=== PATIENT | female | born 1970 | race Caucasian/White ===

== ENCOUNTER 2019-12-13 23:52 | Emergency (ER) | payer MEDICAID, SELFPAY ==
[2019-12-13 23:57] VITALS: BP 235/144; PULSE 94; RESP 19; TEMP 36.9; O2SAT 95; BMI 51.5
--- NOTE | 2019-12-14 00:08 | ED_ITS ---
HPI - General Adult General: Chief complaint: General Medical Stated complaint: high bp Time Seen by Provider: 12/14/19 00:01 Source: patient Mode of arrival: ambulatory Limitations: no limitations History of Present Illness: HPI narrative: 49-year-old female who states she has a long history of high blood pressure does not take any meds and does not follow with anyone. She states started having numbness in her arm roughly 1 hour ago. She states that since then her symptoms resolved. Her blood pressure is 235/144. Patient states everything is resolved and she would like to go home right now. She denies any pain and denies any other issues. Associated symptoms: Deny chest pain, dyspnea, headache(s), nausea, rash or vomiting Review of Systems Const: Denies: fever(s), chills, body aches or change in appetite Eyes: Denies: blurry vision or eye discomfort ENMT: Denies: throat pain or dental pain Card: Denies: chest pain Resp: Denies: dyspnea GI: Denies: abdominal pain, nausea, vomiting or diarrhea : Denies: dysuria Musc: Denies: neck pain or back pain Skin/Breast: Denies: rash Neuro: Denies: headache(s) Psych: Denies: depression Jaime/Lymph: Denies: easy bruising All/Imm: Denies: urticaria Physical Exam Const: COMMON NORMALS: no acute distress, patient oriented x3 and healthy appearing HENMT: COMMON NORMALS: normocephalic and atraumatic HEAD & SCALP: normoc ephalic and atraumatic Eye: COMMON NORMALS: Equal, round and reactive pupils present and EOMs intact bilaterally PUPIL: Yes Equal, round and reactive pupils present Neck/C-Spine: COMMON NORMALS: full ROM and supple Chest: COMMONS NORMALS: normal inspection of the chest and normal palpation of entire chest wall Resp: COMMON NORMALS: normal respiratory effort, No retractions, No use of accessory muscles and clear to auscultation bilaterally AUSCULTATION: clear to auscultation bilaterally Cardio: COMMON NORMALS: regular rate, regular rhythm and No murmurs present (Cardio) RATE: regular rate RHYTHM: regular rhythm GI: COMMON NORMALS: Normal to inspection, nondistended, normoactive bowel sounds present, Soft to palpation, non-tender and no masses PALPATION: Yes Soft to palpation Extremity: COMMON NORMALS: normal to inspection and full ROM Neuro: COMMON NORMALS: patient oriented x3, moves all extremities and no focal motor deficits Psych: COMMON NORMALS: mental status grossly normal, Normal thought process present and cooperative THOUGHT PROCESS: Normal thought process present Skin: COMMON NORMALS: no rashes or lesions noted and no wounds GENERAL SKIN EXAM: no rashes or lesions noted Course Vital Signs: Vital signs: Vital Signs Temperature 98.5 F 12/13/19 23:57 Pulse Rate 94 12/13/19 23:57 Respiratory Rate 19 H 12/13/19 23:57 Blood Pressure 235/144 12/13/19 23:57 Pulse Oximetry 95 12/13/19 23:57 MDM - General Adult MDM Narrative: Medical decision making narrative: Patient presents with high blood pressure. When I came to the room she states she felt improved and went was wanting to leave immediately. I was able to convince her to stay for an EKG. I did try to talk her into staying for lab work to which she adamantly refused. She states is been on for years. I will prescribe her blood pressure medicine and try to get her follow-up with her PCP. I informed her if she changes her mind about lab draws or anything else she is to return immediately. She does have decision-making capacity. Patient's been stable while here. Discharge Plan Discharge Patient Disposition: Home Condition: Stable Prescriptions: New hydrochlorothiazide 25 mg tablet 25 mg PO BID Qty: 60 RF: 0 Discharge Orders: Discharge Order (Routine); Ordered 12/14/19 Ordered By: Iqra Mccullough Discharge Diet: Advance as tolerated Discharge Activity: Resume usual activity Patient Instructions: Hypertension (ED) Discharge Date/Time: 12/14/19 00:20 Coding Level of Care Code ED Help Desk Associate for [facility] F[facility] Exam Comprehensive
--- NOTE | 2019-12-14 00:08 | ECG_ITS ---
[facility] Test Date: 2019-12-14 Pat Name: Tessa Trivedi Department: Room: Gender: Female Seam Finisher: : 1970 Requested By: Iqra Mccullough Order Number: [id number] Carl MD: Eli Hobbs M.D. Measurements Intervals [place] Rate: 83 P: 59 [place]: 160 QRS: 14 QRSD: 98 T: 80 QT: 395 QTc: 467 Interpretive Statements SINUS RHYTHM POSSIBLE LEFT ATRIAL ENLARGEMENT [-0.1mV P WAVE IN V1/V2] NONSPECIFIC T-WAVE ABNORMALITY No previous ECG available for comparison Electronically Signed On 12-14-2019 20:52:19 CDT by Eli Hobbs M.D. [email or web address]
--- NOTE | 2019-12-14 09:08 | DCPLANNER ---
senior assistant manager had message to speak with patient about getting established with a primary care physician. senior assistant manager called patient, she stated that she would like to get established with a primary care physician. senior assistant manager called [facility], spoke with Kathy, a follow up appointment was scheduled for Friday, December 22, 2019 at 9:[address] Ferrara. senior assistant manager called patient with appointment information, stated that she would attend the appointment.
--- NOTE | 2020-01-11 08:06 | DCPLANNER ---
Patient had an appointment scheduled for 12.22.19 at [facility] with [place]. Ferrara - patient did not attend this appointment. Patient did have an appointment scheduled 01.09.20 and did attend this appointment.
== END 2019-12-14 00:20 | disposition home or self-care (01) ==
PROVIDERS: Emergency Provider Emergency Medicine
DX: I10 Essential (primary) hypertension (principal)
CPT/HCPCS: 12345; 93005; 99281; 99283

== ENCOUNTER → 2020-01-04 09:09 | Outpatient (BNVA) | payer OTHER, SELFPAY | PROVIDERS: Visit Provider Nurse Practitioner Family | DX: J06.9 Acute upper respiratory infection, unspecified (principal); Z11.59 Encounter for screening for other viral diseases | CPT/HCPCS: 87635 ==

== ENCOUNTER 2020-11-12 12:20 | Emergency (ER) | payer MEDICAID, SELFPAY ==
[2020-11-12 12:25] VITALS: BP 182/119; PULSE 104; RESP 20; TEMP 37.1; O2SAT 94; BMI 51.5
--- NOTE | 2020-11-12 12:35 | PC.NURSE ---
patient is markedly anxious. She does not want to take her clothes off and and refused in and out cath for urine specimen. She does not want to take her underwear off and states she cannot do a clean catch urine as it is difficult for her to reach down there Md has explained that we need the urine specimen and she is currently trying to calm herself and think about it
--- NOTE | 2020-11-12 12:36 | ED_ITS ---
HPI - Female Genitourinary General: Chief complaint: Urogenital-Female Stated complaint: vaginal bleeding Time Seen by Provider: 11/12/20 12:25 History of Present Illness: HPI Narrative: 50-year-old female presents emergency room complaining of several days of vaginal bleeding she also some left lower quadrant cramping and pain. She denies any diarrhea. She has been postmenopausal for about the last 2 to 3 years she has a history of hypertension but has been out of her antihypertensives for the last couple of weeks. Denies any fever sweats chills dysuria urgency or frequency no vomiting or diarrhea. She is fairly certain that all the bleeding is vaginal and none is rectal. Is not previously had a colonoscopy. She has not had any abnormal Pap smears in the past. She not had any renal stones in the past. Patient admits that this has been an ongoing issue for some time when she had finally worked up encouraged to have it evaluated. MD elicited complaint: vaginal bleeding Onset (ago): day(s) (4) Location of symptoms: LLQ Female Urogenital Radiation: Non-Radiating Quality of pain: cramping Consistency: intermittent Vaginal bleeding: moderate and bright red Exacerbating factors: none Relieving factors: none Associated symptoms: Reports abdominal pain and vaginal bleeding; Deny short of breath, fevers/chills, headache(s), nausea, rash, seizures, syncope, vaginal discharge or weakness Treatment prior to arrival: none Sexual activity: No Patient : No Possible : postmenopausal Review of Systems Const: Denies: fever(s), chills, body aches, change in appetite, fatigue or malaise ENMT: Denies: throat pain, ear or mastoid pain, nasal discharge or nasal congestion Card: Denies: syncope Resp: Denies: dyspnea, productive cough or non-productive cough GI: Reports: abdominal pain; Denies: nausea : Denies: vaginal discharge Skin/Breast: Denies: rash or pruritus Neuro: Denies: headache(s) PFSH ED PFSH: Medical History HTN (hypertension) Hypertensive crisis without congestive heart failure Morbid obesity with body mass index (BMI) of 50.0 to 59.9 in adult Tooth abscess Surgical History H/O tubal ligation Hx of elbow surgery Social History Smoking and tobacco status: current every day smoker Physical Exam Const: COMMON NORMALS: no acute distress GENERAL APPEARANCE: cooperative and comfortable ORIENTATION/CONSCIOUSNESS: Yes awake, Yes oriented to person, Yes oriented to place and Yes oriented to time HENMT: COMMON NORMALS: normocephalic, atraumatic and hearing grossly normal bilaterally HEAD & SCALP: normocephalic and atraumatic Neck/C-Spine: COMMON NORMALS: no JVD Resp: COMMON NORMALS: normal respiratory effort, No retractions, No use of accessory muscles and clear to auscultation bilaterally AUSCULTATION: clear to auscultation bilaterally Cardio: COMMON NORMALS: no JVD, regular rate, regular rhythm and No murmurs present (Cardio) RATE: regular rate RHYTHM: regular rhythm GI: COMMON NORMALS: Soft to palpation and No hepatosplenomegaly present AUSCULTATION: Yes normoactive bowel sounds PALPATION: Yes Soft to palpation, No Tenderness to palpation present (GI), No Guarding due to palpation present (GI) and Yes No hepatosplenomegaly present : SPECULUM EXAM - VAGINA: Yes vaginal bleeding OB/EXTERNAL & SPECULUM: vaginal bleeding Extremity: COMMON NORMALS: normal to inspection, capillary refill normal, no clubbing, cyanosis or edema, no calf tenderness and no pedal edema Neuro: SENSORIUM/ORIENTATION: Yes oriented to person, Yes oriented to place and Yes oriented to time Skin: COMMON NORMALS: no rashes or lesions noted GENERAL SKIN EXAM: no rashes or lesions noted Course Vital Signs: Vital signs: Vital Signs Temperature 98.7 F 11/12/20 12:25 Pulse Rate 104 H 11/12/20 12:25 Respiratory Rate 20 H 11/12/20 12:25 Blood Pressure 182/119 11/12/20 12:25 Pulse Oximetry 94 11/12/20 12:25 MDM - Female MDM Narrative: Medical decision making narrative: Patient declines any further exam. While evaluating and her and doing a physical exam we coached her that she would need a transvaginal ultrasound to get the best data. We had also done a cath UA since she was complaining of vaginal bleeding and wanted to make sure we got a accurate urine specimen. She developed severe anxiety would not allow any blood draws. We offered to start an IV give her some Ativan to make the ultrasound more tolerable she refused. Despite efforts by my self along with the nurse at the bedside we are not able to convince her otherwise. Ultimately she decided to leave [place]. She was encouraged to return at any time we can complete the evaluation. We will have case management attempt to make her a follow-up appointment with LEGAL SUPPORT ANALYST to further evaluate. Discharge Plan Discharge Patient Disposition: Left Against Medical Advice Clinical Impression: Postmenopausal vaginal bleeding Condition: Stable Prescriptions: No Action albuterol sulfate 90 mcg/actuation HFA aerosol inhaler 2 puff inhalation Q6H PRN (Reason: shortness of breath or wheezing) Qty: 8.5 RF: 1 lisinopril 20 mg tablet 20 mg PO DAILY Qty: 30 RF: 1 hydrochlorothiazide 25 mg tablet 25 mg PO BID Qty: 60 RF: 0 Activity Restrictions/Additional Instructions: Case management will make arrangements for referral to gynecology. You are wel come to return at any time to the emergency room to complete the evaluation. Coding Level of Care Code ED [facility] Exam Comprehensive
[2020-11-12 13:43] LABS: Glucose Urine UA 4+ (Normal); Ketones Urine Negative (Negative); Protein Urine Neg (Negative); Specific Gravity, Urine 1.005 (1.005-1.030); Urine Appearance Clear (CLEAR); Urine Color Yellow (Yellow); pH Urine 6.5 (5-7)
[2020-11-12 13:44] LABS: Add Urine Microscopic? YES; Bilirubin Urine Neg (Negative); Blood Urine 2+ (Negative); Leukocyte Esterase Urine Negative (Negative); Nitrate Urine Negative (Negative); Urobilinogen Urine 1 mg/dL (Negative)
[2020-11-12 13:46] LABS: Add Urine Culture? No; Bacteria Urine TRACE /hpf; Mucus Urine 1+ /hpf
--- NOTE | 2020-11-14 10:01 | DCPLANNER ---
manager reliability had message to schedule a follow up appointment for patient with [facility]. manager reliability called the [facility], spoke with Evangelista, gave clinic patients information. manager reliability was told that patients information would be printed and reviewed. Clinic will call patient with appointment information.
--- NOTE | 2020-11-15 07:50 | DCPLANNER ---
Patient has a follow up appointment scheduled for Saturday, December 05, 2020 at 11:[address] Mo at [facility]. Clinic will call patient with appointment information.
--- NOTE | 2020-12-07 12:51 | DCPLANNER ---
Patient had a follow up appointment scheduled for 12.05.20 with [facility] - patient did not attend appointment.
== END 2020-11-12 13:27 | disposition left against medical advice (07) ==
PROVIDERS: Emergency Provider Family Medicine
DX: N95.0 Postmenopausal bleeding (principal); I10 Essential (primary) hypertension; F17.210 Nicotine dependence, cigarettes, uncomplicated
CPT/HCPCS: 81001; 99282

== ENCOUNTER 2022-07-10 01:45 | Emergency (ER) | payer MEDICAID, SELFPAY ==
[2022-07-10 01:51] VITALS: BP 151/96; PULSE 104; RESP 20; TEMP 36.9; O2SAT 97; BMI 48.0
--- NOTE | 2022-07-10 02:03 | W.ED.SKABFB ---
HPI - Skin/Abscess/Foreign Bdy General: Chief complaint: Skin/Abscess/Foreign Body Stated complaint: pt believes she was bit by a black Time Seen by Provider: 07/10/22 01:54 History of Present Illness: 51-year-old female comes in for concerns of a insect bite to the right wrist area. Patient believes it might be have been a black . Patient did not see the spider but reports some stinging and pain to the site. Patient also reports some headache that has improved since arriving to the ER. Patient appears nontoxic. Patient appears no acute distress. Patient has a history of hypertension and COPD. Associated symptoms: Deny chills, fever(s), nausea or vomiting Review of Systems General: Reports: 10 or more systems reviewed and unremarkable except in HPI and below Const: Denies: fever(s) or chills Card: Denies: chest pain Resp: Denies: dyspnea GI: Denies: nausea or vomiting Skin/Breast: Reports: erythema PFSH ED PFSH: Medical History (Updated 07/10/22 @ 02:05 by EDUARDO Osorio) Cellulitis of right lower extremity HTN (hypertension) Hypertensive crisis without congestive heart failure Morbid obesity with body mass index (BMI) of 50.0 to 59.9 in adult Tooth abscess Surgical History H/O tubal ligation Hx of elbow surgery Social History Smoking and tobacco status: current every day smoker Physical Exam Const: COMMON NORMALS: alert HENMT: COMMON NORMALS: normocephalic HEAD & SCALP: normocephalic Neck/C-Spine: COMMON NORMALS: full ROM Resp: COMMON NORMALS: normal respiratory effort and clear to auscultation bilaterally AUSCULTATION: clear to auscultation bilaterally Cardio: COMMON NORMALS: regular rate and regular rhythm RATE: regular rate RHYTHM: regular rhythm GI: COMMON NORMALS: Soft to palpation and non-tender PALPATION: Yes Soft to palpation Extremity: COMMON NORMALS: normal to inspection Neuro: SENSORIUM/ORIENTATION: Yes alert Skin: NARRATIVE SKIN EXAM: Lesion to the wrist has minimal surrounding swelling no streaking LESIONS: lesion noted (Small 1 mm punctate lesion to the right ulnar wrist) Course Vital Signs: Vital signs: Vital Signs Temperature 98.4 F 07/10/22 01:51 Pulse Rate 104 H 07/10/22 01:51 Respiratory Rate 20 H 07/10/22 01:51 Blood Pressure 151/96 07/10/22 01:51 Pulse Oximetry 97 07/10/22 01:51 Oxygen Delivery Me thod 07/10/22 01:51 MDM - Skin/Abscess/Foreign Bdy Medicial Decision Making 51-year-old female comes in today for concerns of possible envenomation by vero cohn. On exam there is a small punctate red lesion to the right ulnar wrist that is tender to touch. No significant induration or redness or swelling is noted at the site. No streaking is noted at the site. Patient moves all extremities well. Patient reports no spasms or nausea or vomiting or shortness of breath that is normal for her. Differential diagnosis includes local reaction to insect bite, cellulitis, neuropathy. No signs of serious injury or illness is noted. Reviewed exam with patient with recommendations for treatment and follow-up. Patient reported understanding and agreed to plan. Discharge Plan Discharge Patient Disposition: Home Clinical Impression: Insect bite of forearm with local reaction Qualifiers: Encounter type: initial encounter Laterality: right Qualified Code(s): S50.861A - Insect bite (nonvenomous) of right forearm, initial encounter Condition: Stable Prescriptions: No Action albuterol sulfate 90 mcg/actuation HFA aerosol inhaler 2 puff inhalation Q6H PRN (Reason: shortness of breath or wheezing) Qty: 8.5 3RF hydrochlorothiazide 25 mg tablet 25 mg PO BID Qty: 60 5RF lisinopril 20 mg tablet 20 mg PO DAILY Qty: 30 5RF Discharge Orders: Discharge ED (Routine); Ordered 07/10/22 Ordered By: Ady Jimenez Referrals: Tl Bullock MD [Primary Care Provider] - Discharge Diet: Usual diet Discharge Activity: Increase activity as tolerated Patient Instructions: Vero Cohn Spider Bite (ED) Activity Restrictions/Additional Instructions: Home and rest. Drink plenty of water and fluids. Use acetaminophen or ibuprofen for your pain. You may use ice packs to the area for further pain relief. Most likely the spider bites are superficial causing some pain at the site with minimal systemic symptoms. If you start having more muscle spasms, severe pain, or new concerns return to the ER. Otherwise, follow-up with primary care. Coding Level of Care Code ED Hospital Security Officer for [facility]
== END 2022-07-10 02:11 | disposition home or self-care (01) ==
PROVIDERS: Emergency Provider Nurse Practitioner Family; PCP Family Medicine Adult Medicine
DX: S50.861A Insect bite (nonvenomous) of right forearm, initial encounter (principal); I11.0 Hypertensive heart disease with heart failure; I50.9 Heart failure, unspecified; F17.210 Nicotine dependence, cigarettes, uncomplicated; W57.XXXA Bitten or stung by nonvenomous insect and other nonvenomous arthropods, initial encounter
CPT/HCPCS: 99282

== ENCOUNTER 2022-07-13 14:07 | Emergency (ER) | payer MEDICAID, SELFPAY ==
[2022-07-13 14:12] VITALS: BP 144/96; PULSE 109; RESP 18; TEMP 36.6; O2SAT 97
--- NOTE | 2022-07-13 14:22 | W.ED.ABDPA2 ---
HPI - Abdominal Pain General: Chief Complaint: Abdominal Pain Stated Complaint: chaz magallanes Time Seen by Provider: 07/13/22 14:21 History of Present Illness: Ms Trivedi is a 51-year-old lady with history of tobaccoism, COPD, anxiety presenting to the emergency department for concern over abdominal symptoms. She was seen in the ER on 07/10 for concern over a insect bite. Insect bite has not significantly changed and is on the right distal ulnar wrist forearm. There is no evidence of necrosis or superimposed infection. Patient was concerned that this is related to black or other venomous spider. She woke up the next morning with intermittent abdominal pain. She has difficulty localizing it and reports that it is occurred at least hourly with increasing intensity. Describes it as a cramping feeling with that release. Denies changes in bowel movements. She does report frequent urination though this has not changed, she has been nauseous but no vomiting. No other signs of systemic illness. Onset (ago): day(s) Pain Consistency: intermittent Severity: moderate Quality: cramping and sharp Radiation: none Migration to: no migration Exacerbating factors: nothing Relieving factors: nothing Associated Symptoms: Reports other Review of Systems General: Reports: 10 or more systems reviewed and unremarkable except in HPI and below GI: Reports: other [facility] ED PFSH: Medical History (Updated 07/23/22 @ 00:00 by KENRICK Naranjo) Encounter for screening laboratory testing for COVID-19 virus HTN (hypertension) Hypertensive crisis without congestive heart failure Morbid obesity with BMI of 40.0-44.9, adult Tooth abscess Surgical History H/O tubal ligation Hx of elbow surgery Social History Smoking and tobacco status: current every day smoker Physical Exam Const: COMMON NORMALS: alert GENERAL APPEARANCE: cooperative and well developed HENMT: COMMON NORMALS: normocephalic and atraumatic HEAD & SCALP: normocephalic and atraumatic Eye: COMMON NORMALS: conjunctivae normal CONJUNCTIVA: Yes conjunctivae normal SCLERA: sclerae normal Neck/C-Spine: COMMON NORMALS: supple GENERAL: Yes trachea midline Resp: COMMON NORMALS: clear to auscultation bilaterally EFFORT & INSPECTION: Yes able to speak in complete sentences AUSCULTATION: clear to auscultation bilaterally Cardio: COMMON NORMALS: regular rhythm RATE: tachycardic RHYTHM: regular rhythm GI: COMMON NORMALS: Soft to palpation PALPATION: Yes Soft to palpation and No Tenderness to palpation present (GI) : COMMON NORMALS: Yes no CVA tenderness BLADDER/KIDNEY EXAM: Yes no CVA tenderness Back/Pelvis: COMMON NORMALS: no CVA tenderness Extremity: NARRATIVE EXTREMITY EXAM: Right ulnar small erythematous lesion, approximately 3 mm in diameter. No evidence of surrounding infection or spreading infection. No eschar or necrosis. Lesion is nonvesicular GENERAL: Yes normal exam except as noted and No edema Neuro: COMMON NORMALS: moves all extremities SENSORIUM/ORIENTATION: Yes alert and No Orientation impaired Psych: COMMON NORMALS: mental status grossly normal and Normal thought process present ACTIVITY/MOTOR BEHAVIOR: Yes hyperactivity MOOD & AFFECT: Yes anxious THOUGHT PROCESS: Normal thought process present Course Vital Signs: Vital signs: Vital Signs Temperature 97.9 F 07/13/22 14:12 Pulse Rate 109 H 07/13/22 14:12 Respiratory Rate 18 07/13/22 14:12 Blood Pressure 144/96 07/13/22 14:12 Pulse Oximetry 97 07/13/22 14:12 Oxygen Delivery Me thod Room Air 07/13/22 14:12 MDM - Abdominal Pain Medical Decision Making 51-year-old lady presenting to the emergency department for concern over abdominal pain possibly related to insect bite. Patient is quite anxious. She is nontoxic in appearance. There is no evidence of significant abdominal tenderness to palpation, certainly no evidence of acute surgical abdomen. Broad differential for abdominal pain in this context, unlikely to be related to insect bite and insect bite less likely venomous however certainly loxoscelism is a consideration. Laboratory studies ordered. Prior to results of laboratory studies patient left AGAINST MEDICAL ADVICE. Laboratory studies demonstrate mild hemoconcentration minimal leukocytosis, coags are normal. There is hyperglycemia which is new for the patient in recent chart. Patient denied history of diabetes though did endorse concern regarding symptoms. Anion gap is mildly elevated. Lipase is also mildly elevated. hCG is negative. Instructed RN to call patient and have her return for likely admission secondary to new diagnosis of hyperglycemia with possible DKA. Medical Records I reviewed the patient's medical records. Lab Data I reviewed the patient's lab results. 07/13/22 14:43 07/13/22 14:43 Labs/Radiology: Laboratory Results WBC 12.2 10^3/uL (4.0-10.0) H 07/13/22 14:43 RBC 5.90 10^6/uL (4.1-5.3) H 07/13/22 14:43 Hgb 16.8 g/dL (11.5-15.3) H 07/13/22 14:43 Hct 51.2 % (37.0-47.0) H 07/13/22 14:43 MCV 86.8 fl (81-99) 07/13/22 14:43 MCH 28.5 pg (28.0-34.0) 07/13/22 14:43 MCHC 32.8 g/dL (30.0-36.0) 07/13/22 14:43 RDW 13.2 % (12.1-15.1) 07/13/22 14:43 Plt Count 158 10^3/cmm (130-400) 07/13/22 14:43 MPV 13.3 fL (7.4-10.4) H 07/13/22 14:43 Neut % (Auto) 68.2 % 07/13/22 14:43 Lymph % (Auto) 23.9 % 07/13/22 14:43 Calhoun % (Auto) 5.7 % 07/13/22 14:43 Eos % (Auto) 1.0 % 07/13/22 14:43 Baso % (Auto) 0.7 % 07/13/22 14:43 Neut # (Auto) 8.31 10^3/uL (1.8-7.7) H 07/13/22 14:43 Lymph # (Auto) 2.9 10^3/uL (0.8-4.8) 07/13/22 14:43 [place]oun # (Auto) 0.7 10^3/uL (0.2-0.9) 07/13/22 14:43 Eos # (Auto) 0.1 10^3/uL (0.0-0.8) 07/13/22 14:43 Baso # (Auto) 0.1 10^3/uL (0.0-0.1) 07/13/22 14:43 Nucleated RBC % (auto) 0 % 07/13/22 14:43 Nucleated RBCs # 0.0 /100WBC 07/13/22 14:43 PT 12.60 SECONDS (12.1-14.9) 07/13/22 14:43 INR 0.92 (0.8-1.2) 07/13/22 14:43 APTT 21.6 SECONDS (23.9-36.7) L 07/13/22 14:43 Sodium 123 mmol/L (136-145) L 07/13/22 14:43 Potassium 3.6 mmol/L (3.5-5.1) 07/13/22 14:43 Chloride 82 mmol/L (98-107) L 07/13/22 14:43 Carbon Dioxide 24 mmol/L (22-29) 07/13/22 14:43 Anion Gap 20.6 (5-19) H 07/13/22 14:43 BUN 19 mg/dL (6-20) 07/13/22 14:43 Creatinine 0.7 mg/dL (0.5-0.9) 07/13/22 14:43 GFR Calculation 87.5 mL/min (90-130) L 07/13/22 14:43 Glucose 676 mg/dL (65-115) H* 07/13/22 14:43 Calculated Osmolality 290 mOsm/kg (285-295) 07/13/22 14:43 Calcium 9.5 mg/dL (8.5-10.5) 07/13/22 14:43 Total Bilirubin 0.3 mg/dL (0.15-1.2) 07/13/22 14:43 AST 20 U/L (0-32) 07/13/22 14:43 ALT 33 U/L (0-33) 07/13/22 14:43 Alkaline Phosphatase 106 U/L (35-105) H 07/13/22 14:43 Creatine Kinase 84 U/L (26-192) 07/13/22 14:43 Total Protein 6.9 g/dL (6.6-8.7) 07/13/22 14:43 Albumin 3.6 g/dL (3.5-5.2) 07/13/22 14:43 Globulin 3.3 g/dL (1.3-4.6) 07/13/22 14:43 Lipase 90 U/L (13-60) H 07/13/22 14:43 HCG, Qual Negative (Negative) 07/13/22 14:43 Serum Ketones Negative (Negative) 07/13/22 14:45 Discharge Plan Discharge Patient Disposition: Left Against Medical Advice Clinical Impression: Abdominal pain Condition: Stable Prescriptions: No Action amoxicillin 875 mg tablet 875 mg PO BID Qty: 30 0RF albuterol sulfate 90 mcg/actuation HFA aerosol inhaler 2 puff inhalation Q6H PRN (Reason: shortness of breath or wheezing) Qty: 8.5 3RF atorvastatin 40 mg Tablet 40 mg PO Q24H 30 Days Qty: 30 0RF amlodipine 10 mg Tablet 10 mg PO DAILY 30 Days Qty: 30 0RF pantoprazole 40 mg Tablet,Delayed Release (Dr/Ec) 40 mg PO DAILY 30 Days Qty: 30 0RF clonidine HCl 0.1 mg tablet 0.1 mg PO DAILY PRN (Reason: hypertensive emergency) 30 Days Qty: 30 0RF Rx Instructions: for sbp>180 or dbp>100 Novolog FlexPen U-100 Insulin 100 unit/mL (3 mL) insulin pen See Rx Instructions .ROUTE .COMPLEX MDD 30 Qty: 15 0RF Rx Instructions: Inject, subcut, 3 times daily, after meals, based on sliding scale provided Lantus Solostar U-100 Insulin 100 unit/mL (3 mL) insulin pen 10 unit SUBCUT BID 30 Days Qty: 6 0RF Glucagon (HCl) Emergency Kit 1 mg recon soln 1 mg IM Q20M PRN (Reason: hypoglycemia) Qty: 1 0RF Rx Instructions: until target blood sugar attained (DME) glucometer testing kit See Rx Instructions .Route .MEDSUPPLY Qty: 1 0RF Rx Instructions: Glucometer Lancets #100 Strips #100 lisinopril 20 mg tablet 20 mg PO BID 30 Days Qty: 60 5RF metformin 1,000 mg tablet 1,000 mg PO DAILY 30 Days Qty: 30 0RF ondansetron 4 mg film 4 mg PO DAILY PRN (Reason: nausea and vomiting) Qty: 15 0RF Referrals: Tl Bullock MD [Primary Care Provider] - Patient Instructions: Abdominal Pain (ED) Coding Level of Care Code ED Dry Janitor for Herminia Monet
[2022-07-13 14:58] LABS: Basophils # 0.1 10^3/uL (0.0-0.1); Basophils % 0.7 %; Eosinophils # 0.1 10^3/uL (0.0-0.8); Hematocrit 51.2 % (37.0-47.0); Hemoglobin 16.8 g/dL (11.5-15.3); Lymphocytes # 2.9 10^3/uL (0.8-4.8); Lymphocytes % 23.9 %; Mean Corpuscular HGB Conc 32.8 g/dL (30.0-36.0); Mean Corpuscular Hemoglobin 28.5 pg (28.0-34.0); Mean Corpuscular Volume 86.8 fl (81-99); Mean Platelet Volume 13.3 fL (7.4-10.4); Monocytes # 0.7 10^3/uL (0.2-0.9); Monocytes % 5.7 %; Neutrophils # 8.31 10^3/uL (1.8-7.7); Neutrophils % 68.2 %; Nucleated Red Blood Cells % 0 %; Platelet Count 158 10^3/cmm (130-400); Red Cell Distribution Width 13.2 % (12.1-15.1); White Blood Count 12.2 10^3/uL (4.0-10.0)
[2022-07-13 15:12] LABS: INR 0.92 (0.8-1.2)
[2022-07-13 15:13] LABS: Partial Thromboplastin Time 21.6 SECONDS (23.9-36.7)
[2022-07-13 15:14] LABS: HCG, Serum Qual Negative (Negative)
[2022-07-13 15:23] LABS: Alanine Aminotransferase 33 U/L (0-33); Albumin Level 3.6 g/dL (3.5-5.2); Alkaline Phosphatase 106 U/L (35-105); Anion Gap 20.6 (5-19); Aspartate Amino Transferase 20 U/L (0-32); Blood Urea Nitrogen 19 mg/dL (6-20); Calcium 9.5 mg/dL (8.5-10.5); Carbon Dioxide 24 mmol/L (22-29); Chloride 82 mmol/L (98-107); Creatine Phosphokinase 84 U/L (26-192); Globulin 3.3 g/dL (1.3-4.6); Glomerular Filtration Rate 87.5 mL/min (90-130); Lipase 90 U/L (13-60); Osmolality Calculated 290 mOsm/kg (285-295); Potassium 3.6 mmol/L (3.5-5.1); Sodium 123 mmol/L (136-145); Total Bilirubin 0.3 mg/dL (0.15-1.2); Total Protein 6.9 g/dL (6.6-8.7)
[2022-07-13 15:35] LABS: Glucose 676 mg/dL (65-115)
--- NOTE | 2022-07-13 15:46 | PC.NURSE ---
lab called with critical. Glucose: 676. pt has been called, no answer, message left. called person to notify, lorene (pt sister) to call pt and have her call ed back.
[2022-07-13 16:59] LABS: Ketone (Acetest) Serum Negative (Negative)
== END 2022-07-13 14:55 | disposition left against medical advice (07) ==
PROVIDERS: Emergency Provider Emergency Medicine; PCP Family Medicine Adult Medicine
DX: S60.861A Insect bite (nonvenomous) of right wrist, initial encounter (principal); R10.9 Unspecified abdominal pain; Z79.4 Long term (current) use of insulin; Z79.84 Long term (current) use of oral hypoglycemic drugs; Z53.21 Procedure and treatment not carried out due to patient leaving prior to being seen by health care provider; I10 Essential (primary) hypertension; F17.210 Nicotine dependence, cigarettes, uncomplicated; J44.9 Chronic obstructive pulmonary disease, unspecified; W57.XXXA Bitten or stung by nonvenomous insect and other nonvenomous arthropods, initial encounter
CPT/HCPCS: 80053; 82009; 82550; 83690; 84703; 85025; 85610; 85730; 99283

== ENCOUNTER 2022-07-13 16:34 | Observation (INO) | payer MEDICAID, SELFPAY ==
--- NOTE | 2022-07-13 16:35 | W.ED.RECABL ---
HPI - Recheck/Abnormal Lab/Rx General: Chief Complaint: Recheck/Abnormal Lab/Rx Stated Complaint: called back due to labs Time Seen by Provider: 07/13/22 16:35 History of Present Illness: 51-year-old lady returning to the emergency department after leaving AMA earlier today. Called back secondary to hyperglycemia with mildly increased anion gap. No formal diagnosis of diabetes though does endorse typical symptoms including increased thirst and urination for some period of time. Does report 1 episode of vomiting after leaving the hospital however overall abdominal pain previously reported as improved somewhat. No specific epigastric pain. No other specific changes in health, exacerbating, or alleviating factors identified. Description of abnormal result: hyperglycemia PFSH ED PFSH: Medical History (Updated 07/23/22 @ 00:00 by KENRICK Naranjo) Encounter for screening laboratory testing for COVID-19 virus HTN (hypertension) Hypertensive crisis without congestive heart failure Morbid obesity with BMI of 40.0-44.9, adult Tooth abscess Surgical History H/O tubal ligation Hx of elbow surgery Social History Smoking and tobacco status: current every day smoker Physical Exam Const: COMMON NORMALS: alert GENERAL APPEARANCE: cooperative and well developed HENMT: COMMON NORMALS: normocephalic and atraumatic HEAD & SCALP: normocephalic and atraumatic Eye: COMMON NORMALS: conjunctivae normal CONJUNCTIVA: Yes conjunctivae normal SCLERA: sclerae normal Neck/C-Spine: COMMON NORMALS: supple GENERAL: Yes trachea midline Resp: COMMON NORMALS: clear to auscultation bilaterally EFFORT & INSPECTION: Yes able to speak in complete sentences AUSCULTATION: clear to auscultation bilaterally Cardio: COMMON NORMALS: regular rhythm RATE: tachycardic RHYTHM: regular rhythm GI: COMMON NORMALS: Soft to palpation PALPATION: Yes Soft to palpation and No Tenderness to palpation present (GI) : COMMON NORMALS: Yes no CVA tenderness BLADDER/KIDNEY EXAM: Yes no CVA tenderness Back/Pelvis: COMMON NORMALS: no CVA tenderness Extremity: NARRATIVE EXTREMITY EXAM: Right ulnar small erythematous lesion, approximately 3 mm in diameter. No evidence of surrounding infection or spreading infection. No eschar or necrosis. Lesion is nonvesicular GENERAL: Yes normal exam except as noted and No edema Neuro: COMMON NORMALS: moves all extremities SENSORIUM/ORIENTATION: Yes alert and No Orientation impaired Psych: COMMON NORMALS: mental status grossly normal and Normal thought process present ACTIVITY/MOTOR BEHAVIOR: Yes hyperactivity MOOD & AFFECT: Yes anxious THOUGHT PROCESS: Normal thought process present Course Vital Signs: Vital signs: Vital Signs Temperature 97.9 F 07/14/22 13:36 Pulse Rate 93 07/14/22 13:36 Respiratory Rate 16 07/14/22 13:36 Blood Pressure 165/110 07/14/22 13:36 Pulse Oximetry 96 07/14/22 13:36 Oxygen Delivery Me thod Room Air 07/14/22 12:00 MDM - Recheck/Abnormal Lab/Rx Medical Decision Making 51-year-old lady presenting to the emergency department for abnormal labs on previous visit for which she left AMA prior to completion of laboratory results. Exam as above. EKG demonstrates sinus rhythm with nonspecific ST segment abnormalities, no STEMI. Prior labs reviewed and supplemental laboratory studies obtained. Serum ketones are negative. Patient treated with IV fluids, analgesia. Initially patient inclined to have admission however after consultation and evaluation by Dr. Jay patient agreeable to stay. Most likely etiology of patient's symptoms is hyperglycemia with metabolic derangement in a patient without prior history of diagnosed diabetes. The results of ED evaluation were discussed with the patient including plan for admission due to requirement for level of care not available if discharged to prevent significant worsening/deterioration. Patient agreeable with plan. Discussed with hospitalist service who was agreeable to admit patient. Lab Data 07/14/22 05:04 07/14/22 05:04 Radiology Impressions Chest X-Ray 07/14/22 04:05 IMPRESSION: There are no acute chest findings. KUB X-Ray 07/14/22 04:05 IMPRESSION: No acute findings. Laboratory Results POC Glucose > 600 mg/dL (70-110) H* 07/13/22 17:00 Estimat Average Glucose 470 07/13/22 14:43 Hemoglobin A1c 18.0 % (4.0-6.0) H 07/13/22 14:43 Magnesium 1.6 mg/dL (1.7-2.3) L 07/13/22 14:43 Magnesium Cancelled 07/13/22 14:43 Creatine Kinase 78 U/L (26-192) 07/13/22 14:43 Troponin T Baseline 18 ng/L (0-10) H 07/13/22 14:43 C-Reactive Protein 12.3 mg/L (0.0-4.9) H 07/13/22 14:43 Triglycerides 389 mg/dL (0-150) H 07/13/22 14:43 Cholesterol 208 mg/dL (0-200) H 07/13/22 14:43 LDL Cholesterol, Calc 104 mg/dL (50-129) 07/13/22 14:43 HDL Cholesterol 26 mg/dL (60-100) L 07/13/22 14:43 LDL/HDL Ratio 4.00 RATIO (0.00-3.22) H 07/13/22 14:43 Cholesterol/HDL Ratio 8.00 mg/dL (0.0-4.40) H 07/13/22 14:43 Lipase 91 U/L (13-60) H 07/13/22 14:43 TSH 1.49 uIU/mL (0.27-4.20) 07/13/22 14:43 Serum Ketones Negative (Negative) 07/13/22 14:43 Discharge Plan Discharge Patient Disposition: Placed in Observation Admit Provider: Mushtaq Jay Clinical Impression: New onset type 2 diabetes mellitus, Hyperglycemia Discharge Diet: Cardiac and Diabetic Discharge Activity: Resume usual activity Coding Level of Care Code ED Family Practice Md for Herminia Monet
[2022-07-13 16:37] VITALS: BP 151/84; PULSE 105; RESP 18; TEMP 36.7; O2SAT 96
[2022-07-13 17:05] LABS: Glucose Point of Care > 600 mg/dL (70-110)
--- NOTE | 2022-07-13 17:29 | PM.HP ---
Providers/Chief Complaint Primary Care Provider: Tl Bullock MD Chief Complaint: called back due to labs History of Present Illness Tessa Trivedi is a 51 year old female with a past medical history of COPD, history of hypertension, who presents to [facility] due to polyuria, polydipsia, polyphagia and feeling unwell. Patient tells me that she was here on 07/10 for a spider bite on the right arm, she says since then she thinks it might have been a black spider bite, she is on diffuse muscle aches and pains, no fevers, chills, she had diffuse abdominal pain bad acid reflux. But due to persistent polyuria, polydipsia polyphagia, she is worried that she might have type 2 diabetes she came to the emergency room. Initially she left AGAINST MEDICAL ADVICE but she comes back in due to persistence of her symptoms. Initially she spoke to the ER physician and she wanted to go home, however I was able to talk her into staying in the hospital for 1 night for blood sugar monitoring and she is agreeable she tells me that her hesitant about staying here in the hospital is that she was a IV drug abuser many years ago and she does not like IVs and she has social anxiety but she is willing to spend the night in the hospital Review of Systems Const: Denies: fever(s) Eyes: Denies: change in vision Card: Denies: chest pain Resp: Denies: dyspnea GI: Reports: abdominal pain : Denies: flank pain Musc: Denies: neck pain or back pain Skin/Breast: Reports: rash Medications/Allergies Home Medications Medication Instructions Recorded Confirmed Last Taken Type albuterol sulfate 90 mcg/actuation 2 puff inhalation Q6H PRN 03/21/22 07/13/22 Unknown Rx aerosol inhaler shortness of breath or wheezing #8.5 grams hydrochlorothiazide 25 mg tablet 25 mg PO BID blood pressure #60 03/21/22 07/13/22 07/13/22 Rx tabs lisinopril 20 mg tablet 20 mg PO DAILY blood pressure #30 03/21/22 07/13/22 07/13/22 Rx tabs Allergies Allergy/AdvReac Type Severity Reaction Status Date / Time No Known Allergies Allergy Verified 09/06/21 08:07 PFSH Acute PFSH: Medical History Cellulitis of right lower extremity HTN (hypertension) Hypertensive crisis without congestive heart failure Morbid obesity with body mass index (BMI) of 50.0 to 59.9 in adult Tooth abscess Surgical History H/O tubal ligation Hx of elbow surgery Social History Smoking and tobacco status: current every day smoker Vitals/I&O/Wt Last Vital Signs Temp 98.1 F 07/13/22 16:37 Pulse 105 H 07/13/22 16:37 Resp 18 07/13/22 16:37 BP 151/84 07/13/22 16:37 Pulse Ox 96 07/13/22 16:37 O2 Del Method 07/13/22 16:37 Weight last 48 hrs Weight 136.078 kg Physical Exam Const: COMMON NORMALS: no acute distress and patient oriented x3 HENMT: COMMON NORMALS: normocephalic HEAD & SCALP: normocephalic Eye: COMMON NORMALS: Equal, round and reactive pupils present Neck/C-Spine: COMMON NORMALS: no JVD Lymph: LYMPHATIC: no lymphadenopathy noted Resp: COMMON NORMALS: normal respiratory effort, No retractions, No use of accessory muscles and clear to auscultation bilaterally AUSCULTATION: clear to auscultation bilaterally Cardio: COMMON NORMALS: no JVD, regular rate, regular rhythm, S1 normal heart sound present and S2 normal heart sound present RATE: regular rate RHYTHM: regular rhythm HEART SOUNDS: S1 normal heart sound present and S2 normal heart sound present GI: COMMON NORMALS: Normal to inspection, nondistended, normoactive bowel sounds present, Soft to palpation and non-tender PALPATION: Yes Soft to palpation and Yes No hepatosplenomegaly present Extremity: COMMON NORMALS: capillary refill normal, no clubbing, cyanosis or edema, no calf tenderness and no pedal edema Neuro: COMMON NORMALS: patient oriented x3, CN's II-XII intact bilaterally, moves all extremities and no focal motor deficits Psych: COMMON NORMALS: mental status grossly normal A&P Assessment and plan (1) Insect bite of forearm with local reaction: Qualifiers: Encounter type: initial encounter Laterality: right Qualified Code(s): S50.861A - Insect bite (nonvenomous) of right forearm, initial encounter; W57.XXXA - Bitten or stung by nonvenomous insect and other nonvenomous arthropods, initial encounter (2) Hyperglycemia: (3) New onset type 2 diabetes mellitus: (4) Dehydration: (5) Pseudohyponatremia: (6) Morbid obesity with body mass index (BMI) of 50.0 to 59.9 in adult: Plan Hyperglycemia -Likely secondary to new onset type 2 diabetes mellitus -Ketones are negative, anion gap is 21, however patient does not want to have more blood draws, she does not want to have an IV, so I will do my best to try to manage her with subcu insulin and Lantus, she did want to leave and go home, and I was able to convince her to stay in the hospital, discussed morbidity and mortality associate with DKA and HHS, she voiced understanding, all questions answered, but for now she wants to hold off on aggressive management such as insulin drip, and further IV blood draws, but is okay with subcu insulin -After extensive discussion, she was agreeable to get an IV on 1 try, with an experience nurse if not she does not want to have an IV -We will obtain A1c -Start her on a low-dose sliding scale -Start her on Lantus 5 units every morning -Hold taking an IV start IV fluids -Diabetic diet -Monitor blood sugars closely -Serial EKGs serial troponins telemetry monitoring, CPK, CRP -Pseudohyponatremia, from hyperglycemia, monitor mentation -Full code -Lovenox for DVT prophylaxis Attestations Medical Necessity Statement*: Patient requires hospitalization, outpatient with observation due to hyperglycemia, dehydration, pseudohyponatremia Coding Level of Care Code Acute Code for Chg Fwd Diagnoses Insect bite of forearm with local reaction S50.861A; W57.XXXA Encounter type: initial encounter Laterality: right Hyperglycemia R73.9 New onset type 2 diabetes mellitus E11.9 Dehydration E86.0 Pseudohyponatremia R79.89 Morbid obesity with body mass index (BMI) of 50.0 to 59.9 in adult E66.01; Z68.43
--- NOTE | 2022-07-13 17:31 | ECG_ITS ---
[facility] Test Date: 2022-07-13 Pat Name: Tessa Trivedi Department: Room: Gender: Female Parachute Panel Joiner: : 1970 Requested By: Mushtaq Jay Order Number: [id number] Reading MD: Akin Costello Measurements Intervals [place] Rate: 91 P: 60 TX: 167 QRS: 13 QRSD: 89 T: 37 QT: 381 QTc: 469 Interpretive Statements SINUS RHYTHM POSSIBLE RIGHT ATRIAL ENLARGEMENT [0.25mV P-WAVE] LEFT ATRIAL ENLARGEMENT [-0.15mV P-WAVE IN V1/V2] POSSIBLE ANTERIOR MYOCARDIAL INFARCTION , PROBABLY OLD [30 ms Q WAVE IN V3/V4, OR R < 0.2 mV IN V4] PROBABLE INFERIOR MYOCARDIAL INFARCTION , OF INDETERMINATE AGE [35 ms Q WAVE IN II/aVF] Compared to ECG 12/14/2019 00:16:52 Myocardial infarct finding now present T-wave abnormality no longer present Electronically Signed On 07-14-2022 19:01:03 CDT by Akin Costello [id number]
[2022-07-13 17:53] LABS: Ketone (Acetest) Serum Negative (Negative)
[2022-07-13 17:55] LABS: C Reactive Protein 12.3 mg/L (0.0-4.9); Creatine Phosphokinase 78 U/L (26-192); Lipase 91 U/L (13-60)
[2022-07-13 18:04] LABS: Cholesterol 208 mg/dL (0-200); HDL Cholesterol 26 mg/dL (60-100); LDL Cholesterol Calculated 104 mg/dL (50-129); Thyroid Stimulating Hormone 1.49 uIU/mL (0.27-4.20); Triglycerides 389 mg/dL (0-150)
[2022-07-13] MEDS: sodium chloride 0.9% 1,000 ML 125 ML IV ×2 (18:07→21:40)
[2022-07-13 18:12] VITALS: BP 132/79; PULSE 92; RESP 23; O2SAT 93
[2022-07-13 18:34] LABS: Troponin(5th) Baseline 18 ng/L (0-10)
[2022-07-13 18:35] LABS: Magnesium 1.6 mg/dL (1.7-2.3)
[2022-07-13] MEDS: enoxaparin 40 mg/0.4 mL Syringe SUBCUT (18:43)
[2022-07-13] MEDS: insulin lispro 100 unit/1 mL SUBCUT (18:44)
[2022-07-13] MEDS: potassium chloride ER 20 mEq Tablet 40 MEQ PO ×2 (18:46→21:39)
[2022-07-13] MEDS: insulin glargine 100 units/1 mL 5 UNIT SUBCUT (18:52)
[2022-07-13 18:54] LABS: Estmated Average Glucose 470
[2022-07-13 19:19] LABS: Glucose Point of Care 461 mg/dL (70-110)
[2022-07-13 19:49] VITALS: BP 132/79; PULSE 91; RESP 19; O2SAT 93
[2022-07-13 22:00] VITALS: PULSE 87
[2022-07-13 22:10] LABS: Troponin 5 6HR 16.47 ng/L (0-10); Troponin 5 6HR Delta -1.53 ng/L (0-12)
[2022-07-13 23:29] VITALS: BP 152/96; PULSE 77; RESP 13; TEMP 36.8; O2SAT 95
[2022-07-14 04:00] VITALS: BP 130/88; PULSE 104; RESP 23; TEMP 36.2; O2SAT 96
--- NOTE | 2022-07-14 04:05 | XRR_ITS ---
PROCEDURE INFORMATION: Exam: XR Chest Exam date and time: 07/14/2022 4:26 AM Age: 51 years old Clinical indication: Pain; Chest pressure; Additional info: Epigastric pain TECHNIQUE: Imaging protocol: Radiologic exam of the chest. Views: 1 view. COMPARISON: CR XR KUB portable [id number] 07/14/2022 4:23 AM FINDINGS: Lungs: A calcified granuloma seen in the left mid hemithorax. A tiny calcified granuloma superimposed over right hemidiaphragm. Pleural spaces: Unremarkable. No pleural effusion. No pneumothorax. Heart/Mediastinum: Unremarkable. No cardiomegaly. Bones/joints: Unremarkable. XR/XR chest 1V portable [id number] IMPRESSION: There are no acute chest findings.
--- NOTE | 2022-07-14 04:05 | ECG_ITS ---
[facility] Test Date: 2022-07-28 Pat Name: Tessa Trivedi Department: Room: 253 Gender: Female Dietetic Intern: : 1970 Requested By: Jewels Oliva Order Number: [id number] Carl MD: Collin Kelley M.D. Measurements Intervals [place] Rate: 139 P: 49 ID: [id number] QRS: 40 QRSD: 83 T: 53 QT: 309 QTc: 471 Interpretive Statements SINUS TACHYCARDIA MODERATE VOLTAGE CRITERIA FOR LVH, CONSIDER NORMAL VARIANT [MEETS CRITERIA IN ONE OF: R(aVL), S(V1), R(V5), R(V5/V6)+S(V1)] MODERATE ST DEPRESSION [0.05+ mV ST DEPRESSION] Compared to ECG 07/14/2022 18:51:16 Atrial abnormality no longer present Atrial abnormality no longer present ST (T wave) deviation still present Electronically Signed On 07-28-2022 21:27:30 CDT by Collin Kelley M.D. [id number] f
--- NOTE | 2022-07-14 04:05 | XRR_ITS ---
PROCEDURE INFORMATION: Exam: XR Abdomen Exam date and time: 07/14/2022 4:23 AM Age: 51 years old Clinical indication: Abdominal pain; Epigastric; Additional info: Epigastric pain TECHNIQUE: Imaging protocol: Radiologic exam of the abdomen. Views: Frontal supine view of the abdomen. 1 View. COMPARISON: No relevant prior studies available. FINDINGS: Gastrointestinal tract: Normal. No bowel dilation. Bones/joints: Unremarkable. XR/XR KUB portable [id number] IMPRESSION: No acute findings.
[2022-07-14] MEDS: lidocaine 2% viscous 15 ML, aluminum-mag hydrox-simethicon 30 ML, sucralfate oral liq 1 GM PO ×2 (04:13→10:04)
[2022-07-14 05:27] LABS: Basophils # 0.1 10^3/uL (0.0-0.1); Basophils % 0.8 %; Eosinophils # 0.2 10^3/uL (0.0-0.8); Eosinophils % 1.5 %; Hematocrit 49.8 % (37.0-47.0); Hemoglobin 16.6 g/dL (11.5-15.3); Lymphocytes # 2.8 10^3/uL (0.8-4.8); Lymphocytes % 26.3 %; Mean Corpuscular HGB Conc 33.3 g/dL (30.0-36.0); Mean Corpuscular Hemoglobin 28.6 pg (28.0-34.0); Mean Corpuscular Volume 85.9 fl (81-99); Mean Platelet Volume 12.8 fL (7.4-10.4); Monocytes # 0.7 10^3/uL (0.2-0.9); Monocytes % 6.1 %; Neutrophils # 6.98 10^3/uL (1.8-7.7); Neutrophils % 64.7 %; Nucleated Red Blood Cells % 0 %; Platelet Count 145 10^3/cmm (130-400); Red Cell Distribution Width 13.4 % (12.1-15.1); White Blood Count 10.8 10^3/uL (4.0-10.0)
[2022-07-14 05:48] LABS: Troponin(5th) Baseline 19 ng/L (0-10)
[2022-07-14 05:51] LABS: Alanine Aminotransferase 32 U/L (0-33); Albumin Level 3.6 g/dL (3.5-5.2); Alkaline Phosphatase 102 U/L (35-105); Anion Gap 11.9 (5-19); Aspartate Amino Transferase 21 U/L (0-32); Blood Urea Nitrogen 14 mg/dL (6-20); Calcium 8.6 mg/dL (8.5-10.5); Carbon Dioxide 28 mmol/L (22-29); Chloride 86 mmol/L (98-107); Creatinine Clr Calc Pharmacy 149.3571; Globulin 2.7 g/dL (1.3-4.6); Glomerular Filtration Rate 104.6 mL/min (90-130); Glucose 390 mg/dL (65-115); Magnesium 1.6 mg/dL (1.7-2.3); Osmolality Calculated 271 mOsm/kg (285-295); Phosphorus 2.6 mg/dL (2.5-4.5); Potassium 3.9 mmol/L (3.5-5.1); Sodium 122 mmol/L (136-145); Total Bilirubin 0.5 mg/dL (0.15-1.2); Total Protein 6.3 g/dL (6.6-8.7)
[2022-07-14 06:00] VITALS: PULSE 95
--- NOTE | 2022-07-14 06:06 | ECG_ITS ---
[facility] Test Date: 2022-07-14 Pat Name: Tessa Trivedi Department: Room: 253 Gender: Female Tire Mounter: : 1970 Requested By: Jewels Oliva Order Number: [id number] Reading MD: Akin Costello Measurements Intervals [place] Rate: 85 P: 69 [place]: 172 QRS: 27 QRSD: 93 T: 65 QT: 391 QTc: 465 Interpretive Statements SINUS RHYTHM POSSIBLE LEFT ATRIAL ENLARGEMENT [-0.1mV P-WAVE IN V1/V2] LOW QRS VOLTAGE IN PRECORDIAL LEADS [QRS DEFLECTION < 1.0 mV IN CHEST LEADS] Compared to ECG 07/13/2022 17:42:48 Low QRS voltage now present Myocardial infarct finding no longer present Electronically Signed On 07-14-2022 19:04:27 CDT by Akin Costello [id number]
[2022-07-14] MEDS: sodium chloride 0.9% 1,000 ML 125 ML IV (06:29)
[2022-07-14 06:34] LABS: Glucose Point of Care 368 mg/dL (70-110)
[2022-07-14 06:48] LABS: Add Urine Microscopic? NO; Charge for UA Resulting for Rev
[2022-07-14 06:58] LABS: Bilirubin Urine Neg (Negative); Blood Urine Neg (Negative); Glucose Urine UA 4+ (Normal); Ketones Urine Negative (Negative); Leukocyte Esterase Urine Negative (Negative); Nitrate Urine Negative (Negative); Protein Urine Neg (Negative); Specific Gravity, Urine 1.015 (1.005-1.030); Urine Appearance Clear (CLEAR); Urine Color Yellow (Yellow); Urobilinogen Urine Norm (Negative); pH Urine 6 (5-7)
[2022-07-14] MEDS: ondansetron 2 mg/ML SDV 2 mL 4 MG IVP (07:37)
[2022-07-14 07:42] LABS: Glucose Point of Care 345 mg/dL (70-110)
[2022-07-14 08:00] VITALS: BP 163/112; PULSE 91; RESP 16; TEMP 37; O2SAT 93
[2022-07-14] MEDS: insulin glargine 100 units/1 mL 10 UNIT SUBCUT (08:37)
[2022-07-14] MEDS: lisinopril 20 mg Tablet PO (08:37)
[2022-07-14] MEDS: pantoprazole DR 40 mg Tablet PO (08:37)
[2022-07-14] MEDS: atorvastatin 40 mg Tablet PO (08:37)
[2022-07-14] MEDS: insulin lispro 100 unit/1 mL SUBCUT ×2 (08:37→12:19)
[2022-07-14] MEDS: amlodipine 10 mg Tablet PO (08:37)
[2022-07-14] MEDS: magnesium lactate 84 mg Tablet PO (08:37)
--- NOTE | 2022-07-14 11:05 | ECG_ITS ---
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[id number] Requested By: Jewels Oliva Order Number: [id number] Reading MD: Akin Costello Measurements Intervals [place] Rate: 87 P: 71 [place]: 162 QRS: 33 QRSD: 90 T: 58 QT: 380 QTc: 458 Interpretive Statements SINUS RHYTHM POSSIBLE LEFT ATRIAL ENLARGEMENT [-0.1mV P-WAVE IN V1/V2] LOW QRS VOLTAGE IN PRECORDIAL LEADS [QRS DEFLECTION < 1.0 mV IN CHEST LEADS] Compared to ECG 07/14/2022 07:03:32 No significant changes Electronically Signed On 07-14-2022 19:04:15 CDT by Akin Costello [id number]
--- NOTE | 2022-07-14 11:21 | P.DS_ITS ---
Discharge Providers Date of Admission: 07/13/22 17:24 Date of Discharge: July 14, 2022 Attending Provider at Admission: Mushtaq Jay MD Attending Provider at Discharge: Mushtaq Jay MD Primary Care Provider: Tl Bullock MD Diagnoses at Discharge Discharge Diagnosis (1) Insect bite of forearm with local reaction: Status: Acute Qualifiers: Encounter type: initial encounter Laterality: right Qualified Code(s): S50.861A - Insect bite (nonvenomous) of right forearm, initial encounter; W57.XXXA - Bitten or stung by nonvenomous insect and other nonvenomous arthropods, initial encounter (2) Hyperglycemia: Status: Acute (3) New onset type 2 diabetes mellitus: Status: Acute (4) Dehydration: Status: Acute (5) Pseudohyponatremia: Status: Acute (6) Morbid obesity with body mass index (BMI) of 50.0 to 59.9 in adult: Status: Acute Reason for Visit Reason for Visit: called back due to labs Hospital Course Hospital Course Tessa Trivedi is a 51 year old female with a past medical history of COPD, history of hypertension, who presents to [facility] center due to polyuria, polydipsia, polyphagia and feeling unwell.? Patient tells me that she was here on 07/10 for a spider bite on the right arm, she says since then she thinks it might have been a black spider bite, she is on diffuse muscle aches and pains, no fevers, chills, she had diffuse abdominal pain bad acid reflux.? But due to persistent polyuria, polydipsia polyphagia, she is worried that she might have type 2 diabetes she came to the emergency room.? Initially she left AGAINST MEDICAL ADVICE but she comes back in due to persistence of her symptoms.? Initially she spoke to the ER physician and she wanted to go home, however I was able to talk her into staying in the hospital for 1 night for blood sugar monitoring and she is agreeable she tells me that her hesitant about staying here in the hospital is that she was a IV drug abuser many years ago and she does not like IVs and she has social anxiety but she is willing to spend the night in the hospital Patient was admitted to [facility] for new onset type 2 diabetes mellitus, with hyperglycemia, A1c of 18, no significant evidence of diabetic ketoacidosis, she was managed with IV fluids, Lantus, NovoLog, diabetic education, overall clinically improved. Discharged with Lantus 10 units twice daily, NovoLog sliding scale, instructions as below with a close follow-up with primary care as outpatient For hypertriglyceridemia, discharged on atorvastatin For acid reflux discharged on Protonix -Please monitor your blood sugars closely -Monitor your blood sugars 3 times daily as after meals -Please record your blood sugars, and a blood sugar log -For your NovoLog -Please inject blood sugar after meals based on sliding scale provided -Do not inject insulin if you do not eat as hypoglycemia kills -This is a NovoLog sliding scale -Insulin sliding ?fingerstick? Insulin ?141-180?0 units/sq 181-220?2 units/sq ?221-260?4 units/sq ?261-300 6 units/sq ?301-350?8 units/sq ?351-400 10 units/sq > 400? 12 units/sq -If your blood sugar is greater than 500 go to the emergency room -If your blood sugar is less than 60 or at anytime you feel lightheaded or dizzy or diaphoretic or have chest palpitations check your blood sugar, and eat a hard candy or drink orange juice and go immediately to the emergency room -Remember hypoglycemia kills, so if his blood sugar is less than 60 we have to increase it by taking in a sugary meal such as a hard candy or orange juice and go to the emergency room -If you have any questions please call us where here to help -For your Lantus please give yourself 10 units twice a day -For your hypertriglyceridemia please take atorvastatin as prescribed -Please see your primary care provider early this week Physical Exam Const: COMMON NORMALS: no acute distress and patient oriented x3 Resp: COMMON NORMALS: normal respiratory effort, No retractions, No use of accessory muscles and clear to auscultation bilaterally AUSCULTATION: clear to auscultation bilaterally Cardio: COMMON NORMALS: regular rate, regular rhythm, S1 normal heart sound present and S2 normal heart sound present RATE: regular rate RHYTHM: regular rhythm HEART SOUNDS: S1 normal heart sound present and S2 normal heart sound present GI: COMMON NORMALS: Normal to inspection, nondistended, normoactive bowel sounds present and non-tender Extremity: COMMON NORMALS: no pedal edema Neuro: COMMON NORMALS: patient oriented x3 Psych: COMMON NORMALS: mental status grossly normal Discharge Data Studies Completed and Pending Completed Studies During Hospitalization Category Date Time Status XR KUB portable [id number] Stat Exams 07/14/22 04:05 Completed XR chest 1V portable [id number] Stat Exams 07/14/22 04:05 Completed Pending at discharge Category Date Time Status Complete Blood Count w/Auto AM LABS Lab 07/15/22 04:00 Ordered Complete Blood Count w/Auto AM LABS Lab 07/16/22 04:00 Ordered Comprehensive Metabolic Panel AM LABS Lab 07/15/22 04:00 Ordered Comprehensive Metabolic Panel AM LABS Lab 07/16/22 04:00 Ordered HCG Qualitative Urine. Routine Lab 07/14/22 06:25 Received Magnesium AM LABS Lab 07/15/22 04:00 Ordered Magnesium AM LABS Lab 07/16/22 04:00 Ordered Phosphorus AM LABS Lab 07/15/22 04:00 Ordered Phosphorus AM LABS Lab 07/16/22 04:00 Ordered Sodium Stat Lab 07/14/22 11:07 Ordered Radiology Impressions Chest X-Ray 07/14/22 04:05 IMPRESSION: There are no acute chest findings. KUB X-Ray 07/14/22 04:05 IMPRESSION: No acute findings. Laboratory Results WBC 10.8 10^3/uL (4.0-10.0) H 07/14/22 05:04 RBC 5.80 10^6/uL (4.1-5.3) H 07/14/22 05:04 Hgb 16.6 g/dL (11.5-15.3) H 07/14/22 05:04 Hct 49.8 % (37.0-47.0) H 07/14/22 05:04 MCV 85.9 fl (81-99) 07/14/22 05:04 MCH 28.6 pg (28.0-34.0) 07/14/22 05:04 MCHC 33.3 g/dL (30.0-36.0) 07/14/22 05:04 RDW 13.4 % (12.1-15.1) 07/14/22 05:04 Plt Count 145 10^3/cmm (130-400) 07/14/22 05:04 MPV 12.8 fL (7.4-10.4) H 07/14/22 05:04 Neut % (Auto) 64.7 % 07/14/22 05:04 Lymph % (Auto) 26.3 % 07/14/22 05:04 [place] % (Auto) 6.1 % 07/14/22 05:04 Eos % (Auto) 1.5 % 07/14/22 05:04 Baso % (Auto) 0.8 % 07/14/22 05:04 Neut # (Auto) 6.98 10^3/uL (1.8-7.7) 07/14/22 05:04 Lymph # (Auto) 2.8 10^3/uL (0.8-4.8) 07/14/22 05:04 [place] # (Auto) 0.7 10^3/uL (0.2-0.9) 07/14/22 05:04 Eos # (Auto) 0.2 10^3/uL (0.0-0.8) 07/14/22 05:04 Baso # (Auto) 0.1 10^3/uL (0.0-0.1) 07/14/22 05:04 Nucleated RBC % (auto) 0 % 07/14/22 05:04 Nucleated RBCs # 0.0 /100WBC 07/14/22 05:04 Sodium 122 mmol/L (136-145) L 07/14/22 05:04 Potassium 3.9 mmol/L (3.5-5.1) 07/14/22 05:04 Chloride 86 mmol/L (98-107) L 07/14/22 05:04 Carbon Dioxide 28 mmol/L (22-29) 07/14/22 05:04 Anion Gap 11.9 (5-19) 07/14/22 05:04 BUN 14 mg/dL (6-20) 07/14/22 05:04 Creatinine 0.6 mg/dL (0.5-0.9) 07/14/22 05:04 GFR Calculation 104.6 mL/min (90-130) 07/14/22 05:04 Glucose 390 mg/dL (65-115) H 07/14/22 05:04 POC Glucose 345 mg/dL (70-110) H 07/14/22 07:38 Estimat Average Glucose 470 07/13/22 14:43 Hemoglobin A1c 18.0 % (4.0-6.0) H 07/13/22 14:43 Calculated Osmolality 271 mOsm/kg (285-295) L 07/14/22 05:04 Calcium 8.6 mg/dL (8.5-10.5) 07/14/22 05:04 Phosphorus 2.6 mg/dL (2.5-4.5) 07/14/22 05:04 Magnesium 1.6 mg/dL (1.7-2.3) L 07/14/22 05:04 Total Bilirubin 0.5 mg/dL (0.15-1.2) 07/14/22 05:04 AST 21 U/L (0-32) 07/14/22 05:04 ALT 32 U/L (0-33) 07/14/22 05:04 Alkaline Phosphatase 102 U/L (35-105) 07/14/22 05:04 Creatine Kinase 78 U/L (26-192) 07/13/22 14:43 Troponin T Baseline 19 ng/L (0-10) H 07/14/22 05:04 Troponin T Hi Sens 6Hr 16.47 ng/L (0-10) H 07/13/22 21:36 Troponin T Hi Sens 6Hr Delta -1.53 ng/L (0-12) L 07/13/22 21:36 C-Reactive Protein 12.3 mg/L (0.0-4.9) H 07/13/22 14:43 Total Protein 6.3 g/dL (6.6-8.7) L 07/14/22 05:04 Albumin 3.6 g/dL (3.5-5.2) 07/14/22 05:04 Globulin 2.7 g/dL (1.3-4.6) 07/14/22 05:04 Triglycerides 389 mg/dL (0-150) H 07/13/22 14:43 Cholesterol 208 mg/dL (0-200) H 07/13/22 14:43 LDL Cholesterol, Calc 104 mg/dL (50-129) 07/13/22 14:43 HDL Cholesterol 26 mg/dL (60-100) L 07/13/22 14:43 LDL/HDL Ratio 4.00 RATIO (0.00-3.22) H 07/13/22 14:43 Cholesterol/HDL Ratio 8.00 mg/dL (0.0-4.40) H 07/13/22 14:43 Lipase 91 U/L (13-60) H 07/13/22 14:43 TSH 1.49 uIU/mL (0.27-4.20) 07/13/22 14:43 Urine Color Yellow (Yellow) 07/14/22 06:25 Urine Appearance Clear (CLEAR) 07/14/22 06:25 Urine pH 6 (5-7) 07/14/22 06:25 Ur Specific [place] 1.015 (1.005-1.030) 07/14/22 06:25 Urine Protein Neg (Negative) 07/14/22 06:25 Urine Glucose (UA) 4+ (Normal) H 07/14/22 06:25 Urine Ketones Negative (Negative) 07/14/22 06:25 Urine Blood Neg (Negative) 07/14/22 06:25 Urine Nitrate Negative (Negative) 07/14/22 06:25 Urine Bilirubin Neg (Negative) 07/14/22 06:25 Urine Urobilinogen Norm mg/dL (Negative) 07/14/22 06:25 Ur Leukocyte Esterase Negative (Negative) 07/14/22 06:25 Serum Ketones Negative (Negative) 07/13/22 14:43 Vitals Last Vital Signs Temp 98.6 F 07/14/22 08:00 Pulse 91 07/14/22 08:00 Resp 16 07/14/22 08:00 BP 163/112 07/14/22 08:00 Pulse Ox 93 07/14/22 08:00 O2 Del Method 07/14/22 08:00 Discharge Plan Discharge Patient Disposition: Home Condition: Stable Prescriptions: New atorvastatin 40 mg Tablet 40 mg PO Q24H 30 Days Qty: 30 0RF amlodipine 10 mg Tablet 10 mg PO DAILY 30 Days Qty: 30 0RF pantoprazole 40 mg Tablet,Delayed Release (Dr/Ec) 40 mg PO DAILY 30 Days Qty: 30 0RF Magtab 84 mg Tablet Extended Release 84 mg PO DAILY 7 Days Qty: 7 0RF clonidine HCl 0.1 mg tablet 0.1 mg PO DAILY PRN (Reason: hypertensive emergency) 30 Days Qty: 30 0RF Rx Instructions: for sbp>180 or dbp>100 Novolog FlexPen U-100 Insulin 100 unit/mL (3 mL) insulin pen See Rx Instructions .ROUTE .COMPLEX MDD 30 Qty: 15 0RF Rx Instructions: Inject, subcut, 3 times daily, after meals, based on sliding scale provided Lantus Solostar U-100 Insulin 100 unit/mL (3 mL) insulin pen 10 unit SUBCUT BID 30 Days Qty: 6 0RF Glucagon (HCl) Emergency Kit 1 mg recon soln 1 mg IM Q20M PRN (Reason: hypoglycemia) Qty: 1 0RF Rx Instructions: until target blood sugar attained (DME) glucometer testing kit See Rx Instructions .Route .MEDSUPPLY Qty: 1 0RF Rx Instructions: Glucometer Lancets #100 Strips #100 metformin 1,000 mg tablet 1,000 mg PO DAILY 30 Days Qty: 30 0RF Continued albuterol sulfate 90 mcg/actuation HFA aerosol inhaler 2 puff inhalation Q6H PRN (Reason: shortness of breath or wheezing) Qty: 8.5 3RF Changed lisinopril 20 mg tablet 20 mg PO BID 30 Days Qty: 60 5RF Discontinued hydrochlorothiazide 25 mg tablet 25 mg PO BID Qty: 60 5RF Discharge Orders: Discharge Order (Routine); Ordered 07/14/22 Ordered By: Mushtaq Jay Referrals: Tl Bullock MD [Primary Care Provider] - 1-3 days ([facility] Family Medicine will contact you to schedule an follow-up appointment in 4 to 7 days. If you haven't heard from them by Friday afternoon. Please call ) Discharge Diet: Cardiac and Diabetic Discharge Activity: Resume usual activity Patient Instructions: Insulin Aspart Protamine/Insulin Aspart (By injection), Insulin Glargine (By injection), Hypoglycemia in a Person with Diabetes (DC), Type 2 Diabetes in Adults: New Diagnosis (DC), What is Insulin (DC), How to Give an Insulin Injection (DC), Insulin Pens (DC), Hemoglobin A1c (GEN), What to Do if Your Blood Sugar is Low (DC), Diabetes and Exercise (ED), How to Check your Blood Sugar (DC), Opioid Safety Activity Restrictions/Additional Instructions: -Please monitor your blood sugars closely -Monitor your blood sugars 3 times daily as after meals -Please record your blood sugars, and a blood sugar log -For your NovoLog -Please inject blood sugar after meals based on sliding scale provided -Do not inject insulin if you do not eat as hypoglycemia kills -This is a NovoLog sliding scale -Insulin sliding ?fingerstick? Insulin ?141-180?0 units/sq 181-220?2 units/sq ?221-260?4 units/sq ?261-300 6 units/sq ?301-350?8 units/sq ?351-400 10 units/sq > 400? 12 units/sq -If your blood sugar is greater than 500 go to the emergency room -If your blood sugar is less than 60 or at anytime you feel lightheaded or dizzy or diaphoretic or have chest palpitations check your blood sugar, and eat a hard candy or drink orange juice and go immediately to the emergency room -Remember hypoglycemia kills, so if his blood sugar is less than 60 we have to increase it by taking in a sugary meal such as a hard candy or orange juice and go to the emergency room -If you have any questions please call us where here to help -For your Lantus please give yourself 10 units twice a day -For your hypertriglyceridemia please take atorvastatin as prescribed -Please see your primary care provider early this week Discharge Attestations Time Spent in Discharge Care*: greater than 30 min Quality Metrics Clinical Quality Measures [ No reported AMI, CVA or VTE this stay] Coding Level of Care Code 94350 Total time (in minutes) for Discharge: 40 Diagnoses Insect bite of forearm with local reaction S50.861A; W57.XXXA Encounter type: initial encounter Laterality: right Hyperglycemia R73.9 New onset type 2 diabetes mellitus E11.9 Dehydration E86.0 Pseudohyponatremia R79.89 Morbid obesity with body mass index (BMI) of 50.0 to 59.9 in adult E66.01; Z68.43
[2022-07-14 11:33] LABS: Glucose Point of Care 318 mg/dL (70-110)
[2022-07-14 11:38] LABS: HCG Qualitative Urine. Negative (Negative)
[2022-07-14 12:00] VITALS: BP 165/110; PULSE 93; RESP 16; TEMP 36.6; O2SAT 96
[2022-07-14 13:36] VITALS: BP 165/110; PULSE 93; RESP 16; TEMP 36.6; O2SAT 96
== END 2022-07-14 13:38 | disposition home or self-care (01) ==
LOC: ER 17:32 → MEDSURG 20:01
PROVIDERS: Internal Medicine; Admitting Provider Family Medicine; Emergency Provider Emergency Medicine; PCP Family Medicine Adult Medicine; Visit Provider Family Medicine
DX: E11.65 Type 2 diabetes mellitus with hyperglycemia (principal); E86.0 Dehydration; E78.1 Pure hyperglyceridemia; K21.9 Gastro-esophageal reflux disease without esophagitis; E66.01 Morbid (severe) obesity due to excess calories; Z68.43 Body mass index [BMI] 50.0-59.9, adult; S50.861A Insect bite (nonvenomous) of right forearm, initial encounter; W57.XXXA Bitten or stung by nonvenomous insect and other nonvenomous arthropods, initial encounter; F17.200 Nicotine dependence, unspecified, uncomplicated; J44.9 Chronic obstructive pulmonary disease, unspecified; I10 Essential (primary) hypertension
CPT/HCPCS: 36416; 71045; 74018; 80053; 80061; 81003; 81025; 82009; 82550; 82962; 83036; 83690; 83735; 84100; 84443; 84484; 85025; 86140; 93005; 96361; 96372; 96374; 96375; 99285; G0378; J1650; J1815; J2405; J7030

== ENCOUNTER 2022-07-14 17:51 | Emergency (ER) | payer MEDICAID, SELFPAY ==
[2022-07-14 17:53] VITALS: BP 157/94; PULSE 98; RESP 22; TEMP 36.4; O2SAT 92; BMI 51.5
[2022-07-14 18:27] VITALS: BP 163/83; PULSE 97; O2SAT 92
--- NOTE | 2022-07-14 18:51 | ECG_ITS ---
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1970 Requested By: Behzad King Order Number: [id number] Carl MD: Akin Costello Measurements Intervals [place] Rate: 99 P: 149 [place]: 159 QRS: 136 QRSD: 94 T: 136 QT: 381 QTc: 490 Interpretive Statements NSR POSSIBLE RIGHT ATRIAL ENLARGEMENT [0.25mV P-WAVE] LEFT ATRIAL ENLARGEMENT [-0.15mV P-WAVE IN V1/V2] POSSIBLE RIGHT VENTRICULAR HYPERTROPHY [SOME/ALL OF: PROMINENT R IN V1, LATE TRANSITION, RAD, SUSAN, SSS] MINIMAL ST DEPRESSION [0.025+ mV ST DEPRESSION] Compared to ECG 07/14/2022 11:05:26 ST (T wave) deviation now present Sinus rhythm no longer present Electronically Signed On 07-14-2022 18:56:29 CDT by Akin Costlelo [id number]
[2022-07-14 20:31] LABS: Glucose Point of Care 353 mg/dL (70-110)
[2022-07-14] MEDS: ondansetron 2 mg/ML SDV 2 mL 4 MG IVP (20:35)
[2022-07-14] MEDS: sodium chloride 0.9% 1,000 ML 999 ML IV (20:35)
[2022-07-14 20:38] LABS: Basophils # 0.1 10^3/uL (0.0-0.1); Basophils % 0.5 %; Eosinophils # 0.1 10^3/uL (0.0-0.8); Eosinophils % 0.4 %; Hematocrit 53.2 % (37.0-47.0); Hemoglobin 17.5 g/dL (11.5-15.3); Lymphocytes # 2.4 10^3/uL (0.8-4.8); Lymphocytes % 15.3 %; Mean Corpuscular HGB Conc 32.9 g/dL (30.0-36.0); Mean Corpuscular Hemoglobin 28.1 pg (28.0-34.0); Mean Corpuscular Volume 85.4 fl (81-99); Mean Platelet Volume 12.8 fL (7.4-10.4); Monocytes # 0.6 10^3/uL (0.2-0.9); Monocytes % 3.9 %; Neutrophils # 12.49 10^3/uL (1.8-7.7); Neutrophils % 79.3 %; Nucleated Red Blood Cells % 0 %; Platelet Count 157 10^3/cmm (130-400); Red Blood Count 6.23 10^6/uL (4.1-5.3); Red Cell Distribution Width 13.2 % (12.1-15.1); White Blood Count 15.8 10^3/uL (4.0-10.0)
[2022-07-14 20:57] LABS: Ketone (Acetest) Serum Negative (Negative)
[2022-07-14 21:00] LABS: Alanine Aminotransferase 33 U/L (0-33); Albumin Level 3.7 g/dL (3.5-5.2); Alkaline Phosphatase 105 U/L (35-105); Blood Urea Nitrogen 13 mg/dL (6-20); C Reactive Protein 11.4 mg/L (0.0-4.9); Calcium 8.1 mg/dL (8.5-10.5); Carbon Dioxide 26 mmol/L (22-29); Chloride 93 mmol/L (98-107); Globulin 3.1 g/dL (1.3-4.6); Glucose 337 mg/dL (65-115); Lipase 36 U/L (13-60); Magnesium 1.8 mg/dL (1.7-2.3); Osmolality Calculated 281 mOsm/kg (285-295); Phosphorus 1.8 mg/dL (2.5-4.5); Sodium 129 mmol/L (136-145); Total Bilirubin 0.5 mg/dL (0.15-1.2); Total Protein 6.8 g/dL (6.6-8.7)
[2022-07-14 21:17] LABS: Anion Gap 14.3 (5-19); Aspartate Amino Transferase 28 U/L (0-32); Potassium 4.3 mmol/L (3.5-5.1)
--- NOTE | 2022-07-14 21:38 | ED_ITS ---
HPI - Nausea/Vomiting/Diarrhea General: Chief complaint: Nausea/Vomiting/Diarrhea Stated complaint: n/v/d Time Seen by Provider: 07/14/22 18:28 History of Present Illness: 51-year-old female admitted day before yesterday for hyperglycemia. She was started on insulin. She left AMA yesterday. She did not get her insulin filled. She has vomited several times today, and last night as well. She is significantly achy. She is nauseated her blood sugar is elevated. MD elicited complaint: nausea, vomiting and abdominal pain Onset (ago): hour(s) Description of diarrhea: other Associated nausea: Yes Associated abdominal pain: Yes Location of pain: Diffuse Severity: moderate Associated symtoms: Reports anxiety, decreased urine output, dizziness, headache(s), anorexia and nausea; Denies chest pain, fevers/chills or short of breath Review of Systems Const: Denies: fever(s) ENMT: Denies: throat pain Card: Denies: chest pain Resp: Denies: dyspnea GI: Reports: abdominal pain, nausea and vomiting Neuro: Reports: headache(s) and dizziness Psych: Reports: anxiety PFSH ED PFSH: Medical History Cellulitis of right lower extremity HTN (hypertension) Hypertensive crisis without congestive heart failure Morbid obesity with body mass index (BMI) of 50.0 to 59.9 in adult Tooth abscess Surgical History H/O tubal ligation Hx of elbow surgery Social History Smoking and tobacco status: current every day smoker Physical Exam Const: COMMON NORMALS: no acute distress GENERAL APPEARANCE: anxious and ill appearing HENMT: COMMON NORMALS: normocephalic, atraumatic and Normal external nose present HEAD & SCALP: normocephalic and atraumatic FACE & SINUS: normal facial exam and face symmetric NOSE: Normal external nose present Eye: COMMON NORMALS: Equal, round and reactive pupils present and EOMs intact bilaterally PUPIL: Yes Equal, round and reactive pupils present Neck/C-Spine: GENERAL: Yes trachea midline Chest: CHEST: Yes Symmetrical chest wall rise Resp: COMMON NORMALS: normal respiratory effort, No retractions, No use of accessory muscles and clear to auscultation bilaterally AUSCULTATION: clear to auscultation bilaterally Cardio: COMMON NORMALS: regular rate and regular rhythm RATE: regular rate RHYTHM: regular rhythm GI: COMMON NORMALS: Normal to inspection, nondistended, normoactive bowel sounds present PALPATION: Yes Tenderness to palpation present (GI) Extremity: COMMON NORMALS: no pedal edema Neuro: CORI COMA SCALE: document GCS findings [place] coma scale eye opening: Spontaneous [place] coma scale verbal response: Orientated Cori coma scale motor response: Obey commands Cori coma scale total score: 15 SENSORY EXAM: Yes extremities (intact) Psych: COMMON NORMALS: speech normal SPEECH: Yes normal speech Skin: COMMON NORMALS: no rashes or lesions noted GENERAL SKIN EXAM: no rashes or lesions noted Course Vital Signs: Vital signs: Vital Signs Temperature 97.6 F 07/14/22 17:53 Pulse Rate 92 07/15/22 02:00 Respiratory Rate 14 07/14/22 22:00 Blood Pressure 225/132 07/15/22 02:00 Pulse Oximetry 95 07/15/22 02:00 Oxygen Delivery Me thod 07/15/22 02:00 MDM - Nausea/Vomiting/Diarrhea Medical Decision Making 51-year-old female who is left twice AGAINST MEDICAL ADVICE previously from this hospital, as she was admitted for similar complaints. She presents vomiting, with hyperglycemia and hypertension. White blood cell count was mildly elevated at 15.8. Hemoglobin is 17.5. Bicarbonate level is normal at 26. Serum ketones are negative. Her anion gap is normal at 14. Electrolytes are essentially normal as well. Lipase is 36. Chest x-ray does not reveal fluid overload. She has received IV fluid, antihypertensives, and insulin here. We went ahead and dosed her Lantus 10 units as well. Her return to the emergency department essentially stems from her inability to get medications that she was to have filled on discharge from the hospital yesterday. With improvement in her symptoms (no vomiting for the last several hours), improvement in her parameters (blood sugar down to 244, systolic blood pressure down to 142), she will be allowed home to fill her medication and continue. She is encouraged to watch these parameters closely, and return for any problems. Lab Data 07/14/22 20:25 07/14/22 20:25 Radiology Impressions Chest X-Ray 07/14/22 22:04 IMPRESSION: 1. No definite CHF or pneumonia. 2. Other findings discussed above. Laboratory Results WBC 15.8 10^3/uL (4.0-10.0) H 07/14/22 20:25 RBC 6.23 10^6/uL (4.1-5.3) H 07/14/22 20:25 Hgb 17.5 g/dL (11.5-15.3) H 07/14/22 20:25 Hct 53.2 % (37.0-47.0) H 07/14/22 20:25 MCV 85.4 fl (81-99) 07/14/22 20: MCH 28.1 pg (28.0-34.0) 07/14/22 20: MCHC 32.9 g/dL (30.0-36.0) 07/14/22 20:25 RDW 13.2 % (12.1-15.1) 07/14/22:25 Plt Count 157 10^3/cmm (130-400) 07/14/22 20:25 MPV 12.8 fL (7.4-10.4) H 07/14/22 20:25 Neut % (Auto) 79.3 % 07/14/22 20:25 Lymph % (Auto) 15.3 % 07/14/22 20:25 [place] % (Auto) 3.9 % 07/14/22 20:25 Eos % (Auto) 0.4 % 07/14/22: Baso % (Auto) 0.5 % 07/14/22: Neut # (Auto) 12.49 10^3/uL (1.8-7.7) H 07/14/22 20:25 Lymph # (Auto) 2.4 10^3/uL (0.8-4.8) 07/14/22 20:25 [place] # (Auto) 0.6 10^3/uL (0.2-0.9) 07/14/22 20:25 Eos # (Auto) 0.1 10^3/uL (0.0-0.8) 07/14/22 20:25 Baso # (Auto) 0.1 10^3/uL (0.0-0.1) 04/02/23 20:25 Nucleated RBC % (auto) 0 % 07/14/22 20:25 Nucleated RBCs # 0.0 /100WBC 07/14/22 20:25 Sodium 129 mmol/L (136-145) L 07/14/22 20:25 Potassium 4.3 mmol/L (3.5-5.1) 07/14/22 20:25 Chloride 93 mmol/L (98-107) L 07/14/22 20:25 Carbon Dioxide 26 mmol/L (22-29) 07/14/22 20:25 Anion Gap 14.3 (5-19) 07/14/22 20:25 BUN 13 mg/dL (6-20) 07/14/22 20:25 Creatinine 0.4 mg/dL (0.5-0.9) L 07/14/22 20:25 GFR Calculation 167.0 mL/min (90-130) H 07/14/22 20:25 Glucose 337 mg/dL (65-115) H 07/14/22 20:25 POC Glucose 247 mg/dL (70-110) H 07/15/22 02:11 Calculated Osmolality 281 mOsm/kg (285-295) L 07/14/22 20:25 Lactate 1.0 mmol/L (0.5-2.2) 07/14/22 20:25 Calcium 8.1 mg/dL (8.5-10.5) L 07/14/22 20:25 Phosphorus 1.8 mg/dL (2.5-4.5) L 07/14/22 20:25 Magnesium 1.8 mg/dL (1.7-2.3) 07/14/22 20:25 Total Bilirubin 0.5 mg/dL (0.15-1.2) 07/14/22 20:25 AST 28 U/L (0-32) 07/14/22 20:25 ALT 33 U/L (0-33) 07/14/22 20:25 Alkaline Phosphatase 105 U/L (35-105) 07/14/22 20:25 C-Reactive Protein 11.4 mg/L (0.0-4.9) H 07/14/22 20:25 Total Protein 6.8 g/dL (6.6-8.7) 07/14/22 20:25 Albumin 3.7 g/dL (3.5-5.2) 07/14/22 20:25 Globulin 3.1 g/dL (1.3-4.6) 07/14/22 20:25 Lipase 36 U/L (13-60) 07/14/22 20:25 Serum Ketones Negative (Negative) 07/14/22 20:25 Discharge Plan Discharge Patient Disposition: Home Clinical Impression: New onset type 2 diabetes mellitus, Hypertensive urgency Condition: Stable Prescriptions: New ondansetron 4 mg film 4 mg PO DAILY PRN (Reason: nausea and vomiting) Qty: 15 0RF No Action albuterol sulfate 90 mcg/actuation HFA aerosol inhaler 2 puff inhalation Q6H PRN (Reason: shortness of breath or wheezing) Qty: 8.5 3RF atorvastatin 40 mg Tablet 40 mg PO Q24H 30 Days Qty: 30 0RF amlodipine 10 mg Tablet 10 mg PO DAILY 30 Days Qty: 30 0RF pantoprazole 40 mg Tablet,Delayed Release (Dr/Ec) 40 mg PO DAILY 30 Days Qty: 30 0RF Magtab 84 mg Tablet Extended Release 84 mg PO DAILY 7 Days Qty: 7 0RF clonidine HCl 0.1 mg tablet 0.1 mg PO DAILY PRN (Reason: hypertensive emergency) 30 Days Qty: 30 0RF Rx Instructions: for sbp>180 or dbp>100 Novolog FlexPen U-100 Insulin 100 unit/mL (3 mL) insulin pen See Rx Instructions .ROUTE .COMPLEX MDD 30 Qty: 15 0RF Rx Instructions: Inject, subcut, 3 times daily, after meals, based on sliding scale provided Lantus Solostar U-100 Insulin 100 unit/mL (3 mL) insulin pen 10 unit SUBCUT BID 30 Days Qty: 6 0RF Glucagon (HCl) Emergency Kit 1 mg recon soln 1 mg IM Q20M PRN (Reason: hypoglycemia) Qty: 1 0RF Rx Instructions: until target blood sugar attained (DME) glucometer testing kit See Rx Instructions .Route .MEDSUPPLY Qty: 1 0RF Rx Instructions: Glucometer Lancets #100 Strips #100 lisinopril 20 mg tablet 20 mg PO BID 30 Days Qty: 60 5RF metformin 1,000 mg tablet 1,000 mg PO DAILY 30 Days Qty: 30 0RF Discharge Orders: Discharge ED (Routine); Ordered 07/15/22 Ordered By: Behzad Cabrera Referrals: Tl Bullock MD [Primary Care Provider] - 1-3 days Patient Instructions: Hyperglycemia, Hypertension (ED) Activity Restrictions/Additional Instructions: Take the nausea medication every 4 hours while awake today scheduled, then you may use it as needed following that. Fill your medications you were discharged from the hospital with yesterday as early as possible. Check your blood sugar and use the sliding scale you were given to dose your insulin accordingly. Use the long-acting insulin as well. Blood pressure medicine as directed. Return for continued vomiting, worsening pain, inability to control blood sugar despite using your medication, other concerning symptoms. Coding Level of Care Code ED [employer] for Herminia Monet
[2022-07-14] MEDS: amlodipine 10 mg Tablet PO (21:59)
[2022-07-14 22:00] VITALS: BP 195/110; PULSE 86; RESP 14; O2SAT 92
[2022-07-14] MEDS: enalaprilat 1.25 mg/mL Inj IVP (22:00)
[2022-07-14] MEDS: labetalol 5 mg/mL SDV 20mL 20 MG IVP (22:02)
[2022-07-14] MEDS: insulin regular-human 100 units/1 mL 8 UNIT IVP (22:04)
--- NOTE | 2022-07-14 22:04 | XRR_ITS ---
PROCEDURE INFORMATION: Exam: XR Chest Exam date and time: 07/14/2022 10:13 PM Age: 51 years old Clinical indication: Other: HTN, epigastric pain, vomiting; Additional info: HTN vomiting epigastric pain TECHNIQUE: Imaging protocol: Radiologic exam of the chest. Views: 1 view. COMPARISON: CR (CHEST, ) 07/14/2022 4:26 AM FINDINGS: Lungs: No CHF/pulmonary edema. Poor inspiration somewhat limits evaluation, especially of the lung bases. Small calcified granuloma in the left mid lung. Visible lungs otherwise appear essentially clear. Pleural spaces: No visible pneumothorax. No definite pleural fluid. Heart/Mediastinum: Heart size appears borderline/mildly prominent. Bones/joints: No significant acute finding. XR/XR chest 1V portable [id number] IMPRESSION: 1. No definite CHF or pneumonia. 2. Other findings discussed above.
[2022-07-14 23:28] LABS: Glucose Point of Care 304 mg/dL (70-110)
[2022-07-14 23:39] VITALS: BP 154/109; PULSE 85; O2SAT 93
[2022-07-14] MEDS: insulin regular-human 100 units/1 mL 10 UNIT IVP (23:42)
[2022-07-15 00:45] LABS: Glucose Point of Care 298 mg/dL (70-110)
[2022-07-15] MEDS: sodium chloride 0.9% 1,000 ML 999 ML IV (00:54)
[2022-07-15] MEDS: insulin regular-human 100 units/1 mL 10 UNIT IVP (00:55)
[2022-07-15] MEDS: insulin glargine 100 units/1 mL 10 UNIT SUBCUT (00:59)
[2022-07-15 01:29] LABS: Glucose Point of Care 244 mg/dL (70-110)
[2022-07-15 01:45] VITALS: BP 181/131; PULSE 86; O2SAT 95
[2022-07-15 02:00] VITALS: BP 225/132; PULSE 92; O2SAT 95
[2022-07-15] MEDS: labetalol 5 mg/mL SDV 20mL 20 MG IVP (02:04)
[2022-07-15 02:15] LABS: Glucose Point of Care 247 mg/dL (70-110)
[2022-07-15] MEDS: cloNIDine 0.1 mg Tablet PO (02:18)
[2022-07-15] MEDS: lisinopril 10 mg Tablet PO (02:18)
[2022-07-15 02:38] VITALS: BP 114/80; PULSE 84; RESP 16; O2SAT 95
== END 2022-07-15 02:36 | disposition home or self-care (01) ==
PROVIDERS: Emergency Provider Emergency Medicine; PCP Family Medicine Adult Medicine
DX: E11.9 Type 2 diabetes mellitus without complications (principal); I16.0 Hypertensive urgency; Z79.4 Long term (current) use of insulin; I10 Essential (primary) hypertension; F17.210 Nicotine dependence, cigarettes, uncomplicated
CPT/HCPCS: 36416; 71045; 80053; 82009; 82962; 83605; 83690; 83735; 84100; 85025; 86140; 93005; 96361; 96372; 96374; 96375; 96376; 99285; J1815; J2405; J3490; J7030

== ENCOUNTER → 2024-11-19 10:18 | Outpatient (BNVA) | payer MEDICAID, SELFPAY | PROVIDERS: PCP Family Medicine; Visit Provider Family Medicine | DX: E11.65 Type 2 diabetes mellitus with hyperglycemia (principal) | CPT/HCPCS: 80053; 80061; 82043; 83036; 85025 ==

== ENCOUNTER → 2024-12-23 09:13 | Outpatient (BNVA) | payer MEDICAID, SELFPAY | PROVIDERS: PCP Family Medicine; Visit Provider Family Medicine | DX: R10.9 Unspecified abdominal pain (principal); E11.65 Type 2 diabetes mellitus with hyperglycemia | CPT/HCPCS: 81000; 82043; 87086 ==